=== PATIENT | male | born 1945 | race Hispanic/Latino ===

== ENCOUNTER 2018-02-05 17:25 | Observation (INO) | payer MEDICARE ==
--- NOTE | 2018-02-05 18:32 | CT ---
CT BRAIN WITHOUT CONTRAST: INDICATIONS: Altered mental status with history of seizures. COMPARISON: Prior exam dated 02/23/2014. FINDINGS: No acute infarct, hemorrhage, or hydrocephalus is present. The septum pellucidum and third ventricle are midline. The skull and extracranial soft tissues appear within normal limits. IMPRESSION: No acute intracranial abnormality. POS: [facility]
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
[2018-02-05 18:46] LABS: Lavender RECEIVED; Red RECEIVED
[2018-02-05 18:48] LABS: #Eosinphils 0.1 thou/uL (0.0-0.7); #Lymphocytes 0.7 thou/uL (1.20-3.40); #Monocytes 0.4 thou/uL (0.11-0.59); #Neutrophils 7.5 thou/uL (1.40-6.50); %Basophils 0.4 % (0.0-1.0); %Eosinophils 0.6 % (0.0-10.0); %Lymphocytes 8.4 % (21.0-51.0); %Monocytes 4.3 % (0.0-10.0); %Neutrophils 86.3 % (42.0-75.0); Hemoglobin 14.5 g/dL (14.0-18.0); Mean Corpuscular Hemoglobin 32.2 pg (27.0-31.0); Mean Corpuscular Volume 94.7 fL (78.0-98.0); Mean Platelet Volume 8.9 fL (7.4-10.4); Platelet Count 226 thou/uL (130-400); RBC Distribution Width 11.6 % (11.5-14.5); Red Blood Cell (RBC) Count 4.49 mill/uL (4.70-6.10); White Blood Cell (WBC) Count 8.7 thou/uL (4.8-10.8)
[2018-02-05 18:53] LABS: INR-International Normal Ratio 2.2; PTT 32.8 SEC (22.9-36.1); Prothrombin Time 24.4 SEC (12.0-14.7)
[2018-02-05 19:02] LABS: Acetaminophen Less than 6.0 mcg/mL (10.0-30.0); Alcohol Less than 10 mg/dL (Less than 10); CK (CPK) 245 U/L (30-200); Salicylate Less than 8.0 mg/dL (15.0-30.0)
[2018-02-05 19:03] LABS: ALT (SGPT) 25 U/L (8-55); AST (SGOT) 26 U/L (5-34); Albumin 4.1 g/dL (3.4-4.8); Alkaline Phosphatase 88 U/L (40-150); Anion Gap 13 mmol/L (10-20); BUN (Urea Nitrogen) 15 mg/dL (8.4-25.7); Bilirubin, Total 0.6 mg/dL (0.2-1.2); Calc. Creatinine Clearance 0 mL/min (70-130); Calcium 9.3 mg/dL (7.8-10.44); Carbon Dioxide 24 mmol/L (23-31); Chloride 102 mmol/L (98-107); Estimated GFR-MDRD 89; Glucose 117 mg/dL (80-115); Potassium 3.9 mmol/L (3.5-5.1); Protein, Total 7.1 g/dL (5.8-8.1); Sodium 135 mmol/L (136-145)
[2018-02-05 19:13] LABS: Troponin I Less than 0.010 ng/mL (< 0.028)
[2018-02-05 19:17] LABS: CKMB 8.1 ng/mL (0-6.6)
[2018-02-05 19:34] LABS: Amphetamine Not Detected (NotDetected); Barbiturates Screen Not Detected (NotDetected); Benzodiazepine Screen Not Detected (NotDetected); Cocaine Metabolite Screen Not Detected (NotDetected); Medtox Control Line Valid? VALID (VALID); Medtox Reader # READER 1; Methadone Not Detected (NotDetected); Methamphetamine Not Detected (NotDetected); Opiate Screen Not Detected (NotDetected); Oxycodone Screen Not Detected (NotDetected); Phencyclidine (PCP) Not Detected (NotDetected); THC/Cannabinoid Screen Not Detected (NotDetected); Tricyclic Screen Not Detected (NotDetected)
[2018-02-05] MEDS ORDERED: Aspirin 325 MG TAB ONE (20:57)
[2018-02-05 22:26] LABS: Troponin I 0.012 ng/mL (< 0.028)
[2018-02-05] MEDS ORDERED: Ondansetron PF 4 MG/2 ML Vial IVP PRN (22:27)
[2018-02-05] MEDS ORDERED: Acetaminophen 325 MG TAB PO PRN (22:27)
[2018-02-05] MEDS ORDERED: Ondansetron ODT 4 MG TAB SL PRN (22:27)
[2018-02-05 23:24] VITALS: BMI 21.7
[2018-02-06 01:08] LABS: Troponin I Less than 0.010 ng/mL (< 0.028)
[2018-02-06] MEDS: Sodium Chloride 0.9% 1,000 ML IV SCH ×2 (03:57→17:16)
[2018-02-06] MEDS ORDERED: Prevnar 13-Val Conj/PF 0.5 ML SYRINGE IM ONE (09:00)
--- NOTE | 2018-02-06 09:12 | HP ---
CHIEF COMPLAINT: "I passed out." HISTORY OF PRESENT ILLNESS: This is a 72-year-old male with past medical history of coronary artery disease, status post CABG, atrial fibrillation, hypertension presenting with passing out. Patient states that he was at the gas station and he does not remember what happened after patient stated the last thing that he remembers was being in the hospital. Per patient's son and witnesses, patient was in his car and patient was passed out and patient urinated on himself. Upon further questioning, patient stated that he has not been compliant with his medication. Patient states that his medications were finished for the past couple of days, he has not taken none of his medication. Patient denies any headaches, fever, nausea, vomiting, palpitation, chest pain, abdominal pain. REVIEW OF SYSTEMS: Positive for urinary incontinence during patient's event of loss of consciousness, generalized weakness; otherwise, as documented in the HPI. All other systems were reviewed and are negative. PAST MEDICAL HISTORY: Coronary artery disease status post CABG, aortic valve replacement, history of ethanol abuse, hypertension. PAST SURGICAL HISTORY: CABG, aortic valve replacement. PSYCHIATRIC HISTORY: No psych history noted. SOCIAL HISTORY: Patient is alcoholic drinks about 3-4 big 24-ounce beer daily. Patient denies any smoking history. Patient denies any illicit drug use. FAMILY HISTORY: Reviewed and noncontributory. ALLERGIES: No known drug allergies. CURRENT MEDICATIONS: Patient is on Coumadin 5 mg. PHYSICAL EXAMINATION: VITAL SIGNS: Blood pressure is 188/99, pulse of 93, respiratory rate of 20, temperature of 98.7, O2 sat of 99. GENERAL APPEARANCE: Patient is lying in bed, speaking in full sentences. Appears to be well and not in acute distress. HEENT: Normocephalic, atraumatic. Pupils are equally round and reactive to light. Extraocular movements are intact. No scleral icterus. LUNGS: Clear to auscultation bilaterally. No wheeze, no rales, no rhonchi is appreciated. CARDIAC: Positive S1, S2. Regular rate and rhythm. Systolic murmur 4/6 appreciated. ABDOMEN: Soft, nontender, nondistended. Positive bowel sounds in all quadrants. No masses. EXTREMITIES: Upper extremity, 5/5 upper extremity strength, 5/5 lower extremity strength, good pulses at the upper and lower extremities bilaterally. No edema noted. NEUROLOGIC: Cranial nerves II through XII grossly intact. No neurologic deficits noted. NIH stroke scale is 0. SKIN: Warm, dry, and intact. EMERGENCY DEPARTMENT COURSE: In the ED, patient was given aspirin. IMAGING: CT of the brain, no acute intracranial abnormality. Chest x-ray, no definite acute cardiopulmonary abnormality, low lung volumes, stable mild cardiomegaly, and coronary artery bypass grafting change. LABORATORY DATA: WBC is 8.7, hemoglobin is 14.5, hematocrit is 42.5, platelet count is 226. PT 24.4, INR is 2.2, PTT 32.8. Sodium is 135, potassium is 3.9, chloride is 102, carbon dioxide of 24, anion gap of 13, BUN is 15, creatinine is 0.85, glucose is 117. Creatine kinase is 245, CK-MB is 8.1. Troponin x1 is less than 0.010, then 0.012. TSH is 1.6. Prolactin is 14. Urinalysis, urine tox is negative. ASSESSMENT AND PLAN: This is a 72-year-old male with past medical history of coronary artery disease being admitted: 1. Loss of consciousness, likely due to alcohol withdrawal seizures. Per history, patient has been drinking a lot of alcohol and patient states that he has never had seizures before, but this time around, he passed out, lost consciousness and when he woke up he had urinated on himself. We have started patient on Keppra 1000 loading dose. We are going to continue 500 IV Keppra b.i.d. We will continue gentle hydration, we will monitor the patient closely. We have consulted Neurology. We will follow up with their recommendations. 2. Coronary artery disease, status post coronary artery bypass graft. We will start patient on his home medications of aspirin, lisinopril, metoprolol. We will get an echo and we will follow up on echo. 3. Aortic valve replacement. We will continue patient on his home dose of warfarin 2.5 mg. 4. Hypertension, likely due to noncompliance. Patient states that he has not been able to take his medications due to patient ran out of his medications. At this point, we are going to patient on all his medications. We are going to follow up on morning labs. We will continue to monitor the patient closely. 5. Deep venous thrombosis and gastrointestinal prophylaxis. [facility]
[2018-02-06] MEDS: Enoxaparin Sodium 40 MG/0.4 ML SYRINGE SC SCH (09:26)
[2018-02-06] MEDS: Famotidine 20 MG TAB PO SCH ×2 (09:31→20:17)
[2018-02-06] MEDS: Lisinopril 5 MG TAB PO SCH (09:32)
[2018-02-06] MEDS: Hydrochlorothiazide 25 MG TAB PO SCH (09:32)
[2018-02-06] MEDS: Prenatal Vitamin 1 TAB PO SCH (09:32)
[2018-02-06] MEDS: Famotidine/PF 20 mg/2ml Vial SLOW IVP SCH ×2 (09:35→23:08)
[2018-02-06 10:43] LABS: Hemoglobin 13.9 g/dL (14.0-18.0); Platelet Count 161 thou/uL (130-400)
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
[2018-02-06] MEDS: Warfarin Sodium 2.5 MG TAB PO SCH (17:15)
--- NOTE | 2018-02-06 17:26 | MRI ---
MRI BRAIN PRE AND POST CONTRAST ENHANCED: HISTORY: New onset seizure. FINDINGS: Pre and post contrast enhanced MRI brain demonstrate the brain to be unremarkable. No evidence of ac [place] stroke seen. No evidence of acute intracranial masses, hemorrhages, strokes, or contusions seen. The ventricles are of normal size. Normal flow voids seen in the major intracranial vessels. No a bnormal areas of intracranial enhancement seen. No evidence of intracranial mass lesions seen. IMPRESSION: Unremarkable pre and post contrast enhanced MRI brain. POS: [facility]
[2018-02-07 05:30] LABS: #Eosinphils 0.1 thou/uL (0.0-0.7); #Lymphocytes 0.9 thou/uL (1.20-3.40); #Monocytes 0.8 thou/uL (0.11-0.59); #Neutrophils 8.3 thou/uL (1.40-6.50); %Basophils 0.2 % (0.0-1.0); %Eosinophils 1.1 % (0.0-10.0); %Lymphocytes 8.7 % (21.0-51.0); %Monocytes 7.5 % (0.0-10.0); %Neutrophils 82.6 % (42.0-75.0); Hemoglobin 13.8 g/dL (14.0-18.0); INR-International Normal Ratio 1.5; Mean Corpuscular Hemoglobin 30.7 pg (27.0-31.0); Mean Corpuscular Volume 95.8 fL (78.0-98.0); Mean Platelet Volume 9.4 fL (7.4-10.4); Platelet Count 223 thou/uL (130-400); Prothrombin Time 17.9 SEC (12.0-14.7); RBC Distribution Width 11.8 % (11.5-14.5); Red Blood Cell (RBC) Count 4.49 mill/uL (4.70-6.10)
[2018-02-07 06:07] LABS: Anion Gap 9 mmol/L (10-20); BUN (Urea Nitrogen) 9 mg/dL (8.4-25.7); Calc. Creatinine Clearance 83 mL/min (70-130); Calcium 8.7 mg/dL (7.8-10.44); Carbon Dioxide 25 mmol/L (23-31); Chloride 103 mmol/L (98-107); Estimated GFR-MDRD Greater than 90; Glucose 92 mg/dL (80-115); Potassium 3.6 mmol/L (3.5-5.1); Sodium 133 mmol/L (136-145)
[2018-02-07] MEDS: Sodium Chloride 0.9% 1,000 ML IV SCH ×2 (07:35→18:04)
[2018-02-07 09:18] LABS: INR-International Normal Ratio 1.4; Prothrombin Time 17.3 SEC (12.0-14.7)
[2018-02-07] MEDS: Enoxaparin Sodium 40 MG/0.4 ML SYRINGE SC SCH (09:34)
[2018-02-07] MEDS: Famotidine 20 MG TAB PO SCH (09:34)
[2018-02-07] MEDS: Prenatal Vitamin 1 TAB PO SCH (09:34)
[2018-02-07] MEDS: Hydrochlorothiazide 25 MG TAB PO SCH (09:34)
[2018-02-07] MEDS: Lisinopril 5 MG TAB PO SCH (09:34)
[2018-02-07] MEDS: Famotidine/PF 20 mg/2ml Vial SLOW IVP SCH (09:35)
--- NOTE | 2018-02-07 11:08 | EEG ---
Referring Physician: Concepcion BREWER EEG # [id number] TEST TYPE: ROUTINE PORTABLE INPATIENT REPORT: AN EEG USING THE INTERNATIONAL TEN-TWENTY SYSTEM OF ELECTRODE PLACEMENT WAS PERFORMED. The best waking background is a low amplitude 8 hertz alpha frequency. The patient became drowsy with some medium amplitude theta frequency seen over both hemispheres. Photic stimulation was unremarkable. No epileptiform features were seen. IMPRESSION: THIS IS A NORMAL AWAKE AND DROWSY EEG. Computer Networker: DESI Newspaper Writer: [email or web address] [email or web address]
[2018-02-07 16:15] VITALS: BP 132/73; TEMP 98.5
[2018-02-07] MEDS: Warfarin Sodium 2.5 MG TAB PO SCH (17:52)
[2018-02-07] MEDS ORDERED: Warfarin Sodium 2.5 MG TAB PO SCH (18:30)
--- NOTE | 2018-02-07 23:12 | CON ---
DATE OF CONSULTATION: 02/07/2018 CONSULTING PHYSICIAN: Hospital Service. IMPRESSION: Nonspecific syncopal event. PLAN: Discontinue Keppra. HISTORY OF PRESENT ILLNESS: Mr. Zaragoza is a 72-year-old gentleman who presents after having a black out while sitting in his car. He was with his son who witnessed a syncopal event. He apparently los t control of his urine. There was no convulsive activity reported. He regained consciousness in a n onspecific time, but possibly by the time he arrived at the emergency room, he is a very poor histori an and I could not get any specific details. He kept harking back to past events of other issues. Maggy e had an MRI of the brain done which was normal. His EEG is normal. His lab work was unremarkable. He denies any past history of other blackouts. There is questionably some noncompliance associated with his cardiac medications. Reportedly, he has a history of atrial fibrillation. PAST SURGICAL HISTORY: As per chart. SOCIAL HISTORY: No tobacco or alcohol use. FAMILY HISTORY: Noncontributory. ALLERGIES: None. REVIEW OF SYSTEMS: Otherwise, unremarkable. PHYSICAL EXAMINATION: GENERAL: He is a well-nourished elderly gentleman in no acute distress. VITAL SIGNS: Stable. He has been afebrile. NEUROLOGIC: He was alert and cooperative. His Czech is not the best and he had difficulty compreh ending some of the questions despite multiple efforts. Cranial nerves were intact. Motor exam shows symmetric strength. There are no sensory deficits, no abnormal movements were seen. He can stand a nd walk independently. SUMMARY: This is an elderly man with a syncopal event while sitting in his car. There is no suggest nichelle evidence of neurologic event, but would not keep him on Keppra until this is proven to be a recur rent epileptic process.
--- NOTE | 2018-02-08 01:57 | DIS ---
DATE OF ADMISSION: 02/05/2018 DATE OF DISCHARGE: 02/07/2018 PRIMARY CARE PHYSICIAN: Dr. Krause. CODE STATUS: FULL. CONSULTATIONS: Dr. Perez, Neurology. PROCEDURES: Brain CT which had no acute findings. Brain MRI with and without contrast, no acute findings. EEG interpreted by Dr. Perez, which shows a normal EEG awake and drowsy. An echocardiogram, the report is still pending and had a chest x-ray which were no acute findings and did show some stable mild cardiomegaly. REVIEW OF SYSTEMS: Patient was seen by me on date of discharge. Denies any chest pain, any dizziness, any shortness of breath, denies any urinary incontinence. Denies any seizure activities or loss of consciousness. All other systems were reviewed and are negative. PHYSICAL EXAMINATION: VITAL SIGNS: Temperature 98.3, pulse is 61, respirations are 16, blood pressure is 150/72. GENERAL: Patient is lying in bed, speaking in full sentences. Appears to be well and nontoxic and in no acute distress. HEENT: Normocephalic, atraumatic. Pupils are equally round and reactive. Extraocular movements are intact. LUNGS: Clear to auscultation bilaterally, no wheeze, rales or rhonchi. CARDIAC: Positive S1, S2, regular rate and rhythm. Systolic murmur 4/6 is appreciated. ABDOMEN: Soft, nontender, nondistended. Bowel sounds x4. EXTREMITIES: Equal strength, sensation, pulses in all 4, bilateral and no edema is noted. NEUROLOGIC: Cranial nerves II-XII are grossly intact. No focal deficits are noted. SKIN: Warm, dry, and intact. HISTORY OF PRESENT ILLNESS AND HOSPITAL COURSE: A 72-year-old male with a history of cardiac artery disease, is post-CABG, also has a history of atrial fibrillation and hypertension. Patient reports he was at a gas station on the day of admission was in his car and reports that the next thing he remembers he woke up at the hospital. Family reports the patient was in his car and he passed out and urinated on himself. Patient and family denies any sort of seizure disorder history. EMS reports that on the scene, the patient woke up, but was initially combative. Patient is on Coumadin for atrial fibrillation and post-CABG Patient was admitted for further workup. During the hospital stay, patient did not have any seizure activities. Denies any chest pain, shortness of breath or any other complaints. Vital signs remained stable. Workup with a brain MRI, EEG was negative. Echo is still pending. Patient sees Dr. Marin, his interpretive naturalist and was instructed to follow up with him at his next available appointment. An extra dose of Coumadin was given prior to discharge today for an INR of 1.4. He was instructed to have his blood drawn and INR repeated in the next 2-3 days. Troponins x3 were negative. Dr. Perez was able to see the patient prior to discharge and agrees with plan to continue the Keppra 500 mg p.o. b.i.d. that he received while he was hospitalized and to follow up with him in the office the next available appointment. Patient was counseled on refraining from any alcohol while he is on his medications. ALLERGIES: No known drug allergies. ADDED HOME MEDICATIONS: Keppra 500 mg p.o. b.i.d. was added to his home medications HOME MEDS: Aspirin 81 mg p.o. daily, lisinopril 5 mg 1 p.o. daily, metoprolol- hydrochlorothiazide 1 tab p.o. daily, multivitamin 1 p.o. daily, and Coumadin 2.5 mg p.o. daily. DISCHARGE INSTRUCTIONS: The patient remains in stable condition. Patient will be discharged home with family and should follow up with Dr. Krause within 1 week, Dr. Perez and Dr. Marin to be seen at their next available appointment. [facility]
--- NOTE | 2018-02-11 11:36 | EKG ---
Test Reason : Blood Pressure : / mmHG Vent. Rate : 077 BPM Atrial Rate : 077 BPM P-R Int : 156 ms QRS Dur : 090 ms QT Int : 386 ms P-R-T Axes : 051 016 189 degrees QTc Int : 436 ms Normal sinus rhythm with sinus arrhythmia Left ventricular hypertrophy with repolarization abnormality Cannot rule out Inferior infarct , age undetermined Abnormal ECG Confirmed by KARRI PACHECO DO ([id number]), editor magazine LUZ WOMACK ([id number]) on 02/11/2018 11:35:34 AM Referred By: Confirmed By:KARRI PACHECO DO
== END 2018-02-07 19:21 | disposition home or self-care (01) ==
LOC: ERS 17:25 → 2SW 22:17
PROVIDERS: ADMIT Internal Medicine; ATTEND Internal Medicine
DX: R55 Syncope and collapse (principal); I48.91 Unspecified atrial fibrillation; I25.10 Atherosclerotic heart disease of native coronary artery without angina pectoris; I10 Essential (primary) hypertension; Z79.899 Other long term (current) drug therapy; Z95.2 Presence of prosthetic heart valve; Z95.1 Presence of aortocoronary bypass graft
CPT/HCPCS: 70450; 70553; 71045; 80048; 80306; 80307; 82550; 82553; 84146; 84484 ×3; 85014; 85018; 85025; 85049; 85610 ×2; 85730; 93005; 93306; 95816; 95819; 96360; 96361 ×2; 96372 ×2; 99285; G0378; 36415; 80053; 84443; J1650; J1953; S0028